=== PATIENT | female | born 1950 | race African-American/Black ===

== ENCOUNTER 2017-04-20 07:53 | Day surgery (SDC) | payer MEDICARE, BC, OTHER ==
[~2017-04-20] VITALS: Ht 163.2 cm; Wt 88.5 kg
[2017-04-20] MEDS ORDERED: ATOR20TA PO (09:40)
[2017-04-20] MEDS ORDERED: ASPI-1159 PO (09:40)
[2017-04-20] MEDS ORDERED: VALS1TAB6 PO (09:40)
[2017-04-20] MEDS ORDERED: DILT180C69 PO (09:40)
[2017-04-20] MEDS ORDERED: NICARDIPINE 100MCG/ML 10ML VIAL (CATH LAB) IV ONE (11:28)
[2017-04-20] MEDS ORDERED: NITROGLYCERIN 50MCG/ML 10ML VIAL (CATH LAB) IV ONE (11:28)
[2017-04-20] MEDS ORDERED: MIDAZOLAM HCL 2 MG/2 ML VIAL ONE (11:41)
[2017-04-20] MEDS ORDERED: FENTANYL CITRATE/PF 50MCG/ML 2ML VIAL ONE (11:41)
[2017-04-20] MEDS ORDERED: LIDOCAINE HCL 1% 20ML VIAL (Pyxis) INJ ONE (11:41)
[2017-04-20] MEDS ORDERED: IOHEXOL-300 100 ML BOTTLE ONE (11:42)
[2017-04-20] MEDS ORDERED: HEPARIN SODIUM 1,000 UNIT/1ML VIAL IV ONE (11:52)
== END 2017-04-20 16:00 | disposition home or self-care (01) ==
LOC: CCL 07:53
PROVIDERS: ATTEND Specialist
DX: I25.10 Atherosclerotic heart disease of native coronary artery without angina pectoris (principal); I10 Essential (primary) hypertension; E78.5 Hyperlipidemia, unspecified; E88.81 Metabolic syndrome and other insulin resistance; Z79.82 Long term (current) use of aspirin; Z79.899 Other long term (current) drug therapy; Z82.49 Family history of ischemic heart disease and other diseases of the circulatory system
CPT/HCPCS: 93458; C1769; C1893; J1644; J2250; J3010; J3490; Q9967